=== PATIENT | male | born 1935 | race Caucasian/White ===

== ENCOUNTER 2017-04-06 17:02 | Inpatient (IN) | payer MEDICARE, BC ==
[2017-04-06 21:46] VITALS: BP 124/67
--- NOTE | 2017-04-06 22:46 | NUR ---
LEFT HAND SL FLUSHES EASILY.
--- NOTE | 2017-04-06 22:47 | NUR ---
RN TO DO ASSESSMENT.
[2017-04-07] VITALS: BP 95/59
--- NOTE | 2017-04-07 02:24 | NUR ---
PT IN BED WITH HOB UP FOR COMFORT. EYES CLSOED. CHEST RISING AND FALLING. NO O2. LEFT HAND SL. ASHER ALARM ON. BED IN LOWEST POSITION AND CALL LIGHT WITHIN REACH.
[2017-04-07 05:33] VITALS: BP 126/81
--- NOTE | 2017-04-07 07:53 | NUR ---
PT SITTING UP IN BED DENIES ANY NEEDS WILL CONT TO MONITOR
[2017-04-07 08:04] LABS: BASOPHILS 0.2 % (0-2); EOSINOPHILS 3.6 % (0-7); HEMATOCRIT 29.4 % (42.0-54.0); HEMOGLOBIN 9.4 g/dL (13.5-17.5); IMMATURE GRANULOCYTES 0.2 % (0-5); LYMPHOCYTES 18.4 % (15-50); MCH 28.5 pg (26.0-34.0); MCV 89.1 fL (80.0-100.0); MEAN PLATELET VOLUME 8.3 fL (7.4-10.4); MONOCYTES 6.2 % (2-11); NEUTROPHILS 71.4 % (40-80); PLATELET COUNT 131 10x3/uL (130-400); WBC 4.7 10x3/uL (4.8-10.8)
[2017-04-07 08:20] LABS: ANION GAP 10.5 mmol/L (8-16); BILIRUBIN - DIRECT 0.26 mg/dL (0.00-0.30); BILIRUBIN - INDIRECT 0.21 mg/dL (0.00-1.00); BILIRUBIN - TOTAL 0.47 mg/dL (0.2-1.3); CALCIUM 7.9 mg/dL (8.5-10.1); CREATININE - SERUM 2.1 mg/dL (0.6-1.3); MAGNESIUM - SERUM 1.7 mg/dL (1.8-2.4); POTASSIUM - SERUM 3.5 mmol/L (3.5-5.1); PROTEIN - SERUM 6.8 g/dL (6.4-8.2)
[2017-04-07 08:52] VITALS: BP 162/78
[2017-04-07 09:30] LABS: APPEARANCE CLOUDY (CLEAR); BILIRUBIN NEGATIVE (NEGATIVE); COLOR YELLOW (YELLOW); GLUCOSE NEGATIVE (NEGATIVE); KETONE NEGATIVE (NEGATIVE); NITRITE NEGATIVE (NEGATIVE); PROTEIN 2+ mg/dL (NEGATIVE); UROBILINOGEN NORMAL (NORMAL); WHITE CELLS - URINE 25-50 /hpf (0-5)
[2017-04-07 09:31] LABS: BACTERIA MODERATE /hpf (NONE SEEN); EPITHELIAL CELLS RARE /hpf (0-5); MUCUS <1+ /lpf (NONE SEEN); RED CELLS - URINE >50 /hpf (0-5)
--- NOTE | 2017-04-07 12:36 | NUR ---
PT SITTING UP IN BED DENIES ANY NEEDS WILL CONT TO MONITOR
[2017-04-07 12:39] VITALS: BP 107/57
[2017-04-07 16:27] VITALS: BP 129/85
--- NOTE | 2017-04-07 17:00 | NUR ---
PT PIV FELL OUT. RESITED PT TO R HAND X1 STICK 20G. INFUSING WITHOUT ANY PROBLEMS OR CONCERNS
--- NOTE | 2017-04-07 17:19 | NUR ---
PT STATES HE WAS A DNR AT ALF. NO ORDERS, NOTHING ON PAPER CHART. PT IS ALERT ONLY TO SELF. CALLED [facility] AND REQUESTED THAT INFORMATION BE FAXED OVER
--- NOTE | 2017-04-07 19:11 | NUR ---
FAX RECEIVED FROM [facility] AT [facility] WITH PT CODE STATUS, DNR. PLACED ON FRONT OF CHART AND NIGHT NURSE NOTIFIED OF PT CODE STATUS AND THAT DNR ORANGE SHEET NEEDS TO BE SIGNED BY DR SAUCEDO.
[2017-04-07 21:22] VITALS: BP 128/79
[2017-04-08 02:14] VITALS: BP 142/76
[2017-04-08] MEDS ORDERED: PROAIR HFA8.5 GM INH (03:40)
[2017-04-08] MEDS ORDERED: XYZAL5 MG PO (03:40)
[2017-04-08] MEDS ORDERED: BETAPACE 80 MG80 MG PO (03:40)
[2017-04-08] MEDS ORDERED: MIRAPEX0.125 MG PO (03:41)
[2017-04-08 05:55] VITALS: BP 138/75
[2017-04-08 06:31] LABS: BASOPHILS 0.2 % (0-2); EOSINOPHILS 4.2 % (0-7); HEMATOCRIT 27.9 % (42.0-54.0); IMMATURE GRANULOCYTES 0.2 % (0-5); LYMPHOCYTES 25.7 % (15-50); MCHC 32.3 g/dL (31.0-37.0); MEAN PLATELET VOLUME 8.6 fL (7.4-10.4); MONOCYTES 6.6 % (2-11); NEUTROPHILS 63.1 % (40-80); PLATELET COUNT 139 10x3/uL (130-400); RDW 13.9 % (11.5-14.5)
[2017-04-08 06:48] LABS: ANION GAP 8.5 mmol/L (8-16); CALCIUM 7.3 mg/dL (8.5-10.1); CARBON DIOXIDE 30.8 mmol/L (21.0-32.0); PHOSPHOROUS 2.2 mg/dL (2.5-4.9); POTASSIUM - SERUM 3.3 mmol/L (3.5-5.1)
[2017-04-08 06:50] LABS: CREATININE - SERUM 1.2 mg/dL (0.6-1.3)
--- NOTE | 2017-04-08 07:15 | NUR ---
REPORT RECEIVED. RR EVEN AND UNLABORED, PT DENIES NEEDS AT THIS TIME. WILL CTM.
[2017-04-08 09:48] VITALS: BP 142/85
--- NOTE | 2017-04-08 12:15 | NUR ---
FAMILY AT BEDSIDE. DISCUSSED PLAN OF CARE WITH HIM. VERBALIZED UNDERSTANDING. PT IS EATING LUNCH, DENIES NEEDS AT THIS TIME. WILL CTM.
[2017-04-08 12:26] VITALS: BP 135/85
--- NOTE | 2017-04-08 18:23 | NUR ---
PT RESTING QUIELY, RR EVEN AND UNLABORED. PT IS PLEASNTLY CONFUSED. DENIES NEEDS AT THIS TIME. WILL GIVE SHIFT REPORT ON PT CONDITION FOR THE DAY.
--- NOTE | 2017-04-08 18:56 | NUR ---
Patient Name: SHARA MEDRANO Admission Status: Elective Accout number: [id number] Admission Date: 04-06-2017 : 1935 Admission Diagnosis: Attending: Ab Hutchinson Current LOS: 2 Anticipated DC Date: Planned Disposition: Nursing Facility [facility] Primary Insurance: MEDICARE A & B PLANNED EXTERNAL PROVIDER: [facility], [facility] [employer] MEDICAID BED Discharge Planning Comments: * Is the patient Alert and Oriented? Yes 0 * How many steps to enter\exit or inside your home? NONE 0 * PCP DR. LUX 0 * Pharmacy [facility] 0 * Preadmission Environment Candy Department Manager Half-Way 0 * Facility Name [facility] 0 * ADLs Partial Dependent 0 * Partial ADLs (Assistance needed) Ambulation Bathing Medication Management Toileting Transfers 0 * Equipment Other 0 * Other Equipment ALL MEDICAL EQUIPMENT PROVIDED BY FACILITY 0 * List name and contact numbers for known caregivers / representatives who currently or will assist patient after discharge: [facility], 0 * Community resources currently utilized None 0 * Please name any agencies selected above. NONE 0 * Additional services required to return to the preadmission environment? No 0 * Can the patient safely return to the preadmission environment? Yes 0 * Has this patient been hospitalized within the prior 30 days at any hospital? No 0 CM MET WITH PT IN ROOM TO DISCUSS DISCHARGE PLANNING AND NEEDS. PT SEEMS TO HAVE EXTREME DIFFICULTY WITH MEMORY. PT REPORTS LIVING IN [facility], PT IS UNSURE OF WHERE. PT REPORTS HE HAS NO FAMILY OR FRIENDS TO CONTACT AND THAT HE MAKES DECISIONS FOR HIMSELF. CM REVIEWED CHART WHICH INDICATED PT LIVES AT [facility]. PT REPORTS HE WILL BE GOING BACK TO THE [facility] WHEN THE DOCTOR SAYS HE IS WELL. CM FAXED HOSPITAL UPDATE TO [facility] AT [phone]. CM WILL CALL [facility] 04-09-17 TO DETERMINE BED STATUS OF PT FOR RETURN AT DISCHARGE. FOR DISCHARGE, FAX DISCHARGE INFORMATION TO [facility] AT [phone], CALL NURSE REPORT TO [facility] AT [phone]. [facility] TO ARRANGE VAN TRANSPORT. Cell Liner: Bebo Jackson
--- NOTE | 2017-04-08 19:27 | NUR ---
ASSESSMENT COMPLETE, IN BED WATCHING TV. RESPERATIONS EVEN ON RA, IV TO RIGHT HAND SL, SITE CLEAN AND DRY. PAREDES DRAINING TO GRAVITY. PT DENIES PAIN OR NEEDS, BED LOW, CL IN REACH.
--- NOTE | 2017-04-08 21:27 | NUR ---
HS MEDS GIVEN WITH FRESH ICE WATER, REPOSITIONED IN BED FOR COMFORT.
[2017-04-08 21:50] VITALS: BP 158/93
[2017-04-09 00:20] VITALS: BP 163/68
--- NOTE | 2017-04-09 02:49 | NUR ---
PT LYING IN BED LOOKING AT TV DRINKING A [employer] [employer]. NO NEEDS AT THIS TIME, CONTINUE TO MONITOR CLOSELY. BED LOW, CALL LIGHT IN REACH, SIDE RAILS X 2, HOB 30 DEGREES.
--- NOTE | 2017-04-09 03:14 | NUR ---
RESTING WITH EYES CLOSED, RESPERATIONS EVEN, NO S/S DISTRESS NOTED.
[2017-04-09 04:33] VITALS: BP 153/92
[2017-04-09 05:24] LABS: BASOPHILS 0.2 % (0-2); HEMOGLOBIN 9.5 g/dL (13.5-17.5); IMMATURE GRANULOCYTES 0.4 % (0-5); LYMPHOCYTES 28.2 % (15-50); MCH 28.7 pg (26.0-34.0); MCHC 31.7 g/dL (31.0-37.0); MCV 90.6 fL (80.0-100.0); MEAN PLATELET VOLUME 8.6 fL (7.4-10.4); MONOCYTES 6.4 % (2-11); NEUTROPHILS 58.8 % (40-80); PLATELET COUNT 151 10x3/uL (130-400); RBC 3.31 10x6/uL (4.20-6.10); RDW 14.1 % (11.5-14.5); WBC 4.5 10x3/uL (4.8-10.8)
[2017-04-09 05:52] LABS: CALC OSMOLALITY 288 mosm/kg (275-300); CALCIUM 7.4 mg/dL (8.5-10.1); CARBON DIOXIDE 30.8 mmol/L (21.0-32.0); CHLORIDE - SERUM 107 mmol/L (98-107); GLUCOSE 94 mg/dL (74-106); PHOSPHOROUS 2.5 mg/dL (2.5-4.9); POTASSIUM - SERUM 3.7 mmol/L (3.5-5.1); SODIUM 144 mmol/L (136-145); eGFR NON AFRICAN AMERICAN 76 mL/min (90-120)
[2017-04-09 06:02] LABS: UREA NITROGEN 17 mg/dL (7-18)
[2017-04-09] MEDS ORDERED: PROSCAR5 MG PO (06:48)
[2017-04-09] MEDS ORDERED: FLOMAX0.4 MG PO (06:49)
[2017-04-09] MEDS ORDERED: OMNICEF300 MG PO (06:49)
[2017-04-09] MEDS ORDERED: PRADAXA75 MG PO (07:32)
[2017-04-09 07:46] VITALS: BP 144/80
--- NOTE | 2017-04-09 09:51 | NUR ---
WARP DYEING VAT TENDER AT BS GIVING COMPLETE BATH AND LINEN CHANGE. WILL CONT. PLAN OF CARE.
[2017-04-09 11:22] VITALS: BP 120/86
--- NOTE | 2017-04-09 11:32 | NUR ---
Patient Name: SHARA MEDRANO Encounter No: [id number] : 1935 Primary Insurance: MEDICARE A & B Anticipated DC Date: 04-09-2017 Planned Disposition: [facility] Facility External Planned Provider: [facility], MEDICARE REHAB BED DCP follow-up note: CM RECEIVED CALL FROM IN[facility] OF [facility] WHO REPORTS PT WAS IN REHAB AT [facility] PRIOR TO ADMISSION; PT HAD BEEN REFUSING THERAPY AND THEY WERE LOOKING AT DISCHARGING HIM ON 04-18 TO PENITENTIARY CARE; [facility] HAS NO PENITENTIARY CARE BEDS AVAILABLE WITH WAITING LIST. PT WAS ABLE TO WALK WITH THERAPY DURING REHAB STAY AT [facility], IN CONTRAST TO THERAPY NOTES RECEIVED FROM [facility]. [facility] IS NOT SURE IF THEY WILL BE ACCEPTING PT BACK OR NOT, WILL CALL CM WITH ADMISSION DETERMINATION. CM FAXED DISCHARGE INFORMATION TO [facility] AT [phone]. CM WILL CALL [facility] 04-09-17 TO DETERMINE BED STATUS OF PT FOR RETURN AT DISCHARGE. IF ACCEPTED FOR RETURN TO [facility], FAX DISCHARGE INFORMATION TO [facility] AT [phone], CALL NURSE REPORT TO [facility] AT [phone]. FACILITY VAN OR AMBULANCE TRANSPORT TO BE ARRANGED BASED ON PT'S ABILITY TO SIT SAFELY FOR TRANSPORT. CM WAITING ADMISSION DETERMINATION FROM [facility]. Travel Counselor: Bebo Jackson
--- NOTE | 2017-04-09 12:48 | NUR ---
Patient Name: SHARA MEDRANO Admission Status: Elective Accout number: [id number] Admission Date: 04-06-2017 : 1935 Admission Diagnosis:ACUTE KIDNEY FAILURE, UNSPECIFIED Attending: Ab Hutchinson Current LOS: 3 Anticipated DC Date: 04-09-2017 Planned Disposition: Group Home Facility Primary Insurance: MEDICARE A & B PLANNED EXTERNAL PROVIDER: [facility], MEDICARE REHAB BED Discharge Planning Comments: CM RECEIVED CALL FROM [facility] OF [facility], THEY WILL ACCEPT PT BACK TO SKILLED BED TODAY AND WILL SPEAK TO [facility] REGARDING SKILLED NURSING CARE ARRANGEMENTS FOR PT'S FUTURE CARE. CM FAXED DISCHARGE INFORMATION TO [facility] AT [phone]. PT NOTIFIED, IN AGREEMENT WITH DISCHARGE BACK TO [facility] TODAY. CALL NURSE REPORT TO [facility] AT [phone]. AMBULANCE TRANSPORT TO BE ARRANGED BASED ON HOSPITAL THERAPY NOTES DOCUMENTING INABILITY TO SIT SAFELY FOR DURTATION OF TRANSPORTATION. Coat Examiner: Bebo Jackson
--- NOTE | 2017-04-09 14:08 | NUR ---
RECEIVED ORDERS TO DISCHARGE PATIENT TO [facility] IN [place] BY AMBULANCE. REPORT CALLED TO [facility] AT 1400. NOTIFIED [facility] AM[facility]ULANCE SERVICE OF TRANSPORTATION AND [facility] ADVISED IT WOULD BE AN HOUR TO TWO HOURS BEFORE TRANSPORT CAN ARRIVE. PATIENT IS IN BED RESTING AT THIS TIME. NO PROBLEMS TO NOTE. NO SIGNS OR SYMPTOMS OF DISTRESS ARE NOTED AT THIS TIME. CALL LIGHT AND WATER ARE WITHIN REACH.
--- NOTE | 2017-04-09 15:15 | NUR ---
[facility]S TRANSPORT ARRIVED TO UNIT AT APPROXIMATELY 1500. IV REMOVED AT THIS TIME AND CATHETER NOTED TO BE INTACT. DISCHARGE INSTRUCTIONS AND MEDICATION RECONCILLIATION SENT WITH EMS. NO PROBLEMS ARE NOTED AT THIS TIME. PATIENT IS ALERT AND ORIENTED TO PERSON, PLACE, AND TIME. ASSISTED PATIENT TO EMS BED AND PATIENT LEFT THIS FACILITY AT 1508.
--- NOTE | 2017-04-10 20:24 | DS ---
PATIENT:SHARA MEDRANO :[birth year] MEDICAL RECORD: [id number] DISCHARGE SUMMARY ADMISSION DATE: 04/06/17 DISCHARGE DATE: 04/09/17 DATE OF DISCHARGE: 04/09/2017. HOSPITAL COURSE: This is an 81-year-old gentleman with chronic dementia that was admitted with acute renal insufficiency. He had a Cabrera catheter placed at the retirement with 1600 cc residual, his creatinine has now normalized. We did have bacteria in his urine and his urine culture is pending. We are sending him home on Omnicef 300 mg b.i.d. He has been started on Flomax and Avodart by Dr. Sanders. He will follow up with Dr. Sanders as well as his retirement. All review of systems are negative. Blood pressure is 153/92, 96% sat, 92 pulse, 98.8 temperature. All of his medications are the same except for the listed 3, Avodart 5 mg a day, Flomax 0.4 at night, and Omnicef 300 b.i.d. Lab is stable with a creatinine of 1 on discharge. We have increased his Betapace back to his baseline as well as well as continued his Pradaxa. Continue follow up with Dr. Sanders at the retirement. Stable on discharge. Cardiac diet. TRANSINT:[id number] Voice Confirmation ID: [id number] DOCUMENT ID: [id number] XAVI SAUCEDO MD at 2024 CC: [id number] DICTATION DATE: 04/09/17 0652 GROUND SERVICE EQUIPMENT MECHANIC: 04/09/17 1725 DIS IN 04/09/17 [facility] [address] [place] [address]
== END 2017-04-09 15:30 | DRG 683 ==
LOC: D.M2 17:02 → D.SDCHOLD 04-07 12:56 → D.M2 04-07 12:56 → D.SDCHOLD 04-07 13:00 → D.M2 04-07 13:00 → D.SDCHOLD 04-07 15:32 → D.M2 04-07 15:45
PROVIDERS: ADMIT Internal Medicine Nephrology
DX: N17.9 Acute kidney failure, unspecified (principal); N39.0 Urinary tract infection, site not specified; D68.9 Coagulation defect, unspecified; I48.91 Unspecified atrial fibrillation; I25.10 Atherosclerotic heart disease of native coronary artery without angina pectoris; F03.90 Unspecified dementia, unspecified severity, without behavioral disturbance, psychotic disturbance, mood disturbance, and anxiety; I08.1 Rheumatic disorders of both mitral and tricuspid valves; D64.9 Anemia, unspecified; I11.0 Hypertensive heart disease with heart failure; I50.9 Heart failure, unspecified; R41.0 Disorientation, unspecified; Z12.5 Encounter for screening for malignant neoplasm of prostate